=== PATIENT | male | born 1930 | race Caucasian/White ===

== ENCOUNTER 2017-05-03 14:40 | Emergency (ER) | payer OTHER ==
[2017-05-03 14:50] VITALS: TEMP 98; BMI 23.3
--- NOTE | 2017-05-03 14:59 | RAPID ---
Physical Examination Vital Signs: Vital Signs Temperature 98 F 05/03/17 14:44 Pulse Rate 76 05/03/17 14:44 Respiratory Rate 18 05/03/17 14:44 Blood Pressure 139/79 05/03/17 14:44 O2 Sat by Pulse Oximetry (%) 96 05/03/17 14:44 Findings/Remarks: Rapid response called overhead at 2:25 PM. Patient was found to have chest pain and dizziness. Patient has a significant past medical history of cardiac disease with open heart surgery. Initial vitals were 116/67, 95 HR, 98% on RA. Patient was sent to the emergency department for further evaluation. Constitutional: Yes: Well Nourished, No Distress, Calm Rapid Response - Rapid Response Assessment: 86 y.o. M with pmh of cardiac disease and open heart surgery presented with chest pain and dizziness -Patient's vitals were stable -Sent to emergency department for further evaluation. -Recommend EKG and troponins
[2017-05-03 15:59] LABS: BASOPHIL 0.8 % (0-2.0); MCH 29.3 pg (25.7-33.7); MCHC 33.6 g/dl (32.0-35.9); MEAN CELL VOLUME 87.2 fl (80-96); MEAN PLT VOLUME 9.6 fl (7.5-11.1); PLATELET COUNT 251 K/MM3 (134-434); WHITE BLOOD COUNT 6.6 K/mm3 (4.0-10.0)
[2017-05-03 16:11] LABS: ALBUMIN 4.1 g/dl (3.4-5.0); ANION GAP 12 (8-16); BILIRUBIN,TOTAL 0.3 mg/dL (0.2-1.0); CALCIUM 9.4 mg/dL (8.5-10.1); CO2 29 mmol/L (21-32); CREATININE 1.1 mg/dL (0.7-1.3); GLUCOSE,RANDOM 158 mg/dL (74-106); MAGNESIUM 2.2 mg/dL (1.8-2.4); SGOT/AST 6 U/L (15-37); SGPT/ALT 16 U/L (12-78); TOT PROT 7.8 g/dl (6.4-8.2)
[2017-05-03 16:14] LABS: ALK PHOS 109 U/L (45-117); CPK 67 IU/L (39-308); TROPONIN I < 0.02 ng/ml (0.00-0.05)
--- NOTE | 2017-05-03 16:40 | PDOC ---
History of Present Illness - General History Source: Patient Exam Limitations: No Limitations, Language Barrier (Kinyarwanda speaking) - History of Present Illness Initial Comments: 05/03/17 16:52 Patient is an 86 year old male with significant PMHx of pAF, HTN, Hyperlipidemia , Diabetes Mellitus, Hypothyroidism who presents to the ER complaining of an episode of chest pain that occured 11:00am while he was in the waiting room in [facility]. A rapid response was called and the patient was brought to the ED. The episode of chest pain lasted for 10 minutes, occured when he was at rest and is similar to other episodes of CP that he has frequently, every 1-2 days. His last episode was 4 days ago. His chest pain today was non radiating and localized in his sternum. Upon arriving to the emergency department as he was ambulating he reports feeling lightheaded and like he was going to pass out. Denies any loss of consciousness.He denies recent fevers, chills, headache. He denies diaphoresis, nausea, vomit, diarrhea or constipation. He denies recent dysuria, frequency, urgency or hematuria. He denies recent shortness of breath. Allergies: NKA Past surgical history: Heart valve surgery CABG Social history: Nonsmoker. Denies EtOH use and recreational drug use. 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: Keith Weiss [phone] <Nida Guevara - Last Filed: 05/03/17 16:52> <Tonie Trujillo - Last Filed: 05/03/17 18:06> - General Chief Complaint: Chest Pain Stated Complaint: CHEST PAIN Time Seen by Provider: 05/03/17 15:04 Past History <Nida Guevara - Last Filed: 05/03/17 16:52> - Past Medical History Anemia: No Asthma: No Cancer: No Cardiac Disorders: Yes CVA: No COPD: No CHF: No Dementia: No Diabetes: Yes (NIDDM) GI Disorders: No Disorders: No HTN: Yes Hypercholesterolemia: Yes Liver Disease: No Seizures: No Thyroid Disease: Yes - Surgical History Abdominal Surgery: No Appendectomy: Yes Cardiac Surgery: Yes (OPEN HEART VALVE SX 2013) Cholecystectomy: No Lung Surgery: No Neurologic Surgery: No Orthopedic Surgery: No - Psycho/Social/Smoking Cessation Hx Suicidal Ideation: No Smoking History: Never smoked Information on smoking cessation initiated: No Hx Alcohol Use: No Drug/Substance Use Hx: No Substance Use Type: None Hx Substance Use Treatment: No <Tonie Trujillo - Last Filed: 05/03/17 18:06> - Past Medical History Allergies/Adverse Reactions: Allergies Allergy/AdvReac Type Severity Reaction Status Date / Time No Known Drug Allergies Allergy Verified 05/03/17 14:49 Home Medications: Ambulatory Orders Levothyroxine [Synthroid -] 88 mcg PO DAILY 04/24/12 Metformin Xr [Glucophage Xr -] 1,000 mg PO BID 04/24/12 Metoprolol Tartrate [Lopressor -] 25 mg PO DAILY 10/12/12 Aspirin [Aspirin EC] 81 mg PO DAILY 04/21/16 Clopidogrel Bisulfate [Plavix -] 75 mg PO DAILY 04/21/16 Furosemide [Lasix -] 40 mg PO DAILY 04/21/16 Glipizide [Glipizide ER] 5 mg PO DAILY 04/21/16 Nitroglycerin Patch [Nitro-Dur] 0.2 mg TD DAILY 04/21/16 Pravastatin Sodium [Pravachol (Nf)] 20 mg PO HS 04/21/16 Becaplermin [Regranex] 15 gm TP DAILY #1 gel..gram. 12/12/16 Becaplermin [Regranex] 15 gm TP DAILY #1 gel..gram. 01/09/17 Review of Systems - Review of Systems Able to Perform ROS?: Yes Comments:: 05/03/17 16:53 GENERAL/CONSTITUTIONAL: +lightheadedness. No fever or chills. HEAD, EYES, EARS, NOSE AND THROAT: No change in vision. No ear pain or discharge. No sore throat. CARDIOVASCULAR: + chest pain. No shortness of breath. RESPIRATORY: No cough, wheezing, or hemoptysis. GASTROINTESTINAL: No nausea, vomiting, diarrhea or constipation. GENITOURINARY: No dysuria, frequency, or change in urination. MUSCULOSKELETAL: No joint or muscle swelling or pain. No neck or back pain. SKIN: No rash NEUROLOGIC: No headache, loss of consciousness, or change in strength/sensation. ENDOCRINE: No increased thirst. No abnormal weight change. HEMATOLOGIC/LYMPHATIC: No anemia, easy bleeding, or history of blood clots. ALLERGIC/IMMUNOLOGIC: No hives or skin allergy. <Nida Guevara - Last Filed: 05/03/17 16:52> *Physical Exam - Vital Signs Last Vital Signs Temp Pulse Resp BP Pulse Ox 98 F 76 18 139/79 96 05/03/17 14:44 05/03/17 14:44 05/03/17 14:44 05/03/17 14:44 05/03/17 14:44 - Physical Exam Comments: 05/03/17 16:53 GENERAL: Awake, alert, and fully oriented, in no acute distress HEAD: No signs of trauma EYES: PERRLA, EOMI, sclera anicteric, conjunctiva clear ENT: Auricles normal inspection, hearing grossly normal, nares patent, oropharynx clear without exudates. Moist mucosa NECK: Normal ROM, supple, no lymphadenopathy, JVD, or masses LUNGS: Breath sounds equal, clear to auscultation bilaterally. No wheezes, and no crackles HEART: +2/6 systolic ejection. murmur, loudest in right second intercostal space. Regular rate and rhythm, normal S1 and S2, no, rubs or gallops ABDOMEN: Soft, nontender, normoactive bowel sounds. No guarding, no rebound. No masses EXTREMITIES: Normal range of motion, no edema. No clubbing or cyanosis. 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 Normal speech, cranial nerves intact, negative pronator drift, 5/5 strength in all 4 extremities, normal sensation to light touch in all 4 extremities, normal cerebellar exam, normal gait, normal reflexes and tone SKIN: Warm, Dry, normal turgor, no rashes or lesions noted. <Nida Guevara - Last Filed: 05/03/17 16:52> - Vital Signs Last Vital Signs Temp Pulse Resp BP Pulse Ox 98 F 76 18 139/79 96 05/03/17 14:44 05/03/17 14:44 05/03/17 14:44 05/03/17 14:44 05/03/17 14:44 <Tonie Trujillo - Last Filed: 05/03/17 18:06> ED Treatment Course - LABORATORY CBC & Chemistry Diagram: 05/03/17 15:45 05/03/17 15:45 - ADDITIONAL ORDERS Additional order review: Laboratory Results 05/03/17 15:45 Sodium 139 Potassium 4.3 D Chloride 98 Carbon Dioxide 29 Anion Gap 12 BUN 27 H D Creatinine 1.1 Creat Clearance w eGFR > 60 Random Glucose 158 H D Calcium 9.4 Magnesium 2.2 Total Bilirubin 0.3 D AST 6 L D ALT 16 Alkaline Phosphatase 109 D Creatine Kinase 67 Troponin I < 0.02 B-Natriuretic Peptide 157.69 Total Protein 7.8 Albumin 4.1 05/03/17 15:45 RBC 4.10 MCV 87.2 MCHC 33.6 RDW 14.0 MPV 9.6 Neutrophils % 54.0 Lymphocytes % 23.5 Monocytes % 10.7 H Eosinophils % 11.0 H D Basophils % 0.8 <Nida Guevara - Last Filed: 05/03/17 16:52> - LABORATORY CBC & Chemistry Diagram: 05/03/17 15:45 05/03/17 15:45 - ADDITIONAL ORDERS Additional order review: Laboratory Results 05/03/17 15:45 Sodium 139 Potassium 4.3 D Chloride 98 Carbon Dioxide 29 Anion Gap 12 BUN 27 H D Creatinine 1.1 Creat Clearance w eGFR > 60 Random Glucose 158 H D Calcium 9.4 Magnesium 2.2 Total Bilirubin 0.3 D AST 6 L D ALT 16 Alkaline Phosphatase 109 D Creatine Kinase 67 Troponin I < 0.02 B-Natriuretic Peptide 157.69 Total Protein 7.8 Albumin 4.1 05/03/17 15:45 RBC 4.10 MCV 87.2 MCHC 33.6 RDW 14.0 MPV 9.6 Neutrophils % 54.0 Lymphocytes % 23.5 Monocytes % 10.7 H Eosinophils % 11.0 H D Basophils % 0.8 - RADIOLOGY Radiology Studies Ordered: Category Date Time Status CHEST X-RAY PORTABLE* [RAD] Urgent Radiology 05/03/17 15:43 Taken <Tonie Trujillo - Last Filed: 05/03/17 18:06> Medical Decision Making - Medical Decision Making 05/03/17 17:30 86-year-old male history of paroxysmal A. fib, valvular disease, hypertension, diabetes who presents with 10 minutes of sternal chest pain at rest at 11 AM. He also reports a presyncopal episode a few hours later. On exam the patient has a 2/6 systolic ejection murmur that may be consistent with aortic stenosis. Concern for acute coronary syndrome versus critical aortic stenosis versus arrhythmia. 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 Given patient's extensive cardiac history and possible aortic stenosis on exam patient requires admission for further monitoring and management. Patient however, does not want to stay as all of his doctors are in [facility]. Using [employer] adoption coordinator Carla ([email or web address]) number [phone], I explained in length to the patient and his Miguel Vidales our recommendations for his care and also the significant risks and complications that could result from leaving the hospital AGAINST MEDICAL ADVICE including , permanent disability, recurrent chest pain, and loss of consciousness. Patient understands these risks and would still like to leave AGAINST MEDICAL ADVICE. I urged the patient to present immediately to [facility] or to return here if he changes his mind. <Tonie Trujillo - Last Filed: 05/03/17 18:06> *DC/Admit/Observation/Transfer - Attestations Scribe Attestion: 05/03/17 16:53 Documentation prepared by Nida Guevara, acting as medical receptionist for Tonie Trujillo MD. <Nida Guevara - Last Filed: 05/03/17 16:52> - Discharge Dispostion Admit: No - Attestations Physician Attestion: 05/03/17 18:06 I, Dr. Tonie Trujillo MD, attest that this document has been prepared under my direction and personally reviewed by me in its entirety. I further attest, that it accurately reflects all work, treatment, procedures and medical decision -making performed by me. <Tonie Trujillo - Last Filed: 05/03/17 18:06> Diagnosis at time of Disposition: Chest pain Qualifiers: Chest pain type: other chest pain Qualified Code(s): R07.89 - Other chest pain ; R07.8 - Other chest pain - Discharge Dispostion Condition at time of disposition: Stable - Patient Instructions Printed Discharge Instructions: DI for Atypical Chest Pain, DI for Chest Pain Additional Instructions: You are leaving the emergency department AGAINST MEDICAL ADVICE. There risks of leaving AGAINST MEDICAL ADVICE including , permanent disability, recurrent chest pain, loss of consciousness, pain, bleeding. If you change your mind, please return to our emergency Department immediately or to any nearby emergency department for further evaluation and management. Continue to take all of your home medications.
[2017-05-03] MEDS ORDERED: ASPIRIN 325 MG TABLET PO ONE (17:32)
[2017-05-03] MEDS ORDERED: ASPIRIN 81 MG CHEWABLE TABLETS ONE (17:48)
[2017-05-03] MEDS ORDERED: ASPIRIN 325 MG TABLET ONE (17:49)
[2017-05-03 17:58] VITALS: BP 133/71; PULSE 72
--- NOTE | 2017-05-08 09:32 | EKG ---
Test Reason : Blood Pressure : / mmHG Vent. Rate : 075 BPM Atrial Rate : 075 BPM P-R Int : 162 ms QRS Dur : 090 ms QT Int : 370 ms P-R-T Axes : 025 -40 007 degrees QTc Int : 413 ms NORMAL SINUS RHYTHM LEFT AXIS DEVIATION INFERIOR INFARCT (CITED ON OR BEFORE 03-MAY-2017) POOR R WAVE PROGRESSION ABNORMAL ECG WHEN COMPARED WITH ECG OF 18-APR-2016 11:31, POOR R WAVE PROGRESSION IS SEEN Confirmed by REZA PAREDES MD ([id number]) on 05/08/2017 9:31:24 AM Referred By: Confirmed By:REZA PAREDES MD
== END 2017-05-03 18:09 | disposition left against medical advice (07) ==
LOC: JER 14:40
DX: R07.89 Other chest pain (principal); I48.0 Paroxysmal atrial fibrillation; I10 Essential (primary) hypertension; E78.5 Hyperlipidemia, unspecified; E11.9 Type 2 diabetes mellitus without complications; E03.9 Hypothyroidism, unspecified; Z79.82 Long term (current) use of aspirin; Z79.84 Long term (current) use of oral hypoglycemic drugs
CPT/HCPCS: 36415; 71010-TC; 80053; 83735; 83880; 84484; 85025; 93005; 93010; 99283-25